=== PATIENT | female | born 1960 | race African-American/Black ===

== ENCOUNTER 2018-10-23 06:56 | Emergency (ER) | payer SELFPAY ==
[~2018-10-23] VITALS: Ht 175.3 cm; Wt 133.0 kg
[2018-10-23] MEDS ORDERED: DIPHENHYDRAMINE 50MG/ML VIAL IV ONE (07:30)
[2018-10-23] MEDS ORDERED: METHYLPREDNISOLONE SOD SUCC 125 MG/2 ML VIAL IV ONE (07:30)
[2018-10-23 08:27] LABS: BASOPHILS % 1.3 % (0.0-2.0); EOSINOPHILS % 4.6 % (0.0-5.0); HEMATOCRIT. 35.2 % (36.0-48.0); HEMOGLOBIN. 11.2 g/dL (12.0-16.0); LYMPHOCYTES % 33.2 % (20.0-50.0); MEAN CORPUSCULAR VOLUME 84.8 fL (81.0-99.0); MEAN PLATELET VOLUME 8.3 fl (7.4-10.4); MONOCYTES % 7.4 % (2.0-8.0); NEUTROPHILS % 53.5 % (40.0-76.0); PLATELET 247 x1000/uL (130-400); RED BLOOD CELL COUNT 4.15 mill/uL (4.2-5.4)
[2018-10-23 08:29] LABS: CHLORIDE 109 mEq/L (98-107)
[2018-10-23 11:36] VITALS: BP 172/80
== END 2018-10-23 11:53 | disposition home or self-care (01) ==
LOC: ER 06:56
DX: T78.3XXA Angioneurotic edema, initial encounter (principal); T50.2X5A Adverse effect of carbonic-anhydrase inhibitors, benzothiadiazides and other diuretics, initial encounter; Y92.098 Other place in other non-institutional residence as the place of occurrence of the external cause; I10 Essential (primary) hypertension
CPT/HCPCS: 36415; 80053; 85025; 96374; 96375; 99283; J1200; J2930; Z7610